=== PATIENT | female | born 2000 | race Caucasian/White ===

== ENCOUNTER 2021-03-16 18:15 | Emergency (ER) | payer SELFPAY ==
[~2021-03-16] VITALS: Ht 167.6 cm; Wt 65.8 kg
--- NOTE | 2021-03-16 18:50 | NUR ---
TO ER BED 16, C/O NIPPLE SWELLING & REDNESS FOR 3 DAYS, S/P NIPPLE PIERCED X 1 WEEK AGO, FEBRILE, A&OX4, BREATHING EVEN AND UNLABORED
--- NOTE | 2021-03-16 19:25 | NUR ---
saline lock established blood drawn and sent to lab
[2021-03-16] MEDS ORDERED: ACETAMINOPHEN ES 500 MG TABLET ONE (19:26)
[2021-03-16] MEDS ORDERED: IV NS 0.9% 1,000 ML BAG IV ONE (19:30)
[2021-03-16] MEDS ORDERED: ACETAMINOPHEN ES 500 MG TABLET PO ONE (19:30)
[2021-03-16 19:39] LABS: BASOPHILS % (AUTO) 0.1 % (0.0-2.0); EOSINOPHILS % (AUTO) 0.6 % (0.0-6.0); HEMATOCRIT 38 % (33-45); HEMOGLOBIN 13.1 g/dL (11.5-14.8); LYMPHOCYTES # (AUTO) 0.2 K/uL (0.8-4.8); LYMPHOCYTES % (AUTO) 1.8 % (20.0-44.0); MEAN CORPUSCULAR HGB CONC 34 g/dl (31.0-36.0); MEAN CORPUSCULAR VOLUME 92 fL (82-100); MONOCYTES # (AUTO) 0.8 K/uL (0.1-1.30); MONOCYTES % (AUTO) 5.8 % (2.0-12.0); NEUTROPHILS # (AUTO) 12.2 K/uL (1.8-8.9); NEUTROPHILS % (AUTO) 91.7 % (43.0-81.0); PLATELET COUNT (AUTO) 172 K/uL (150-450); RED BLOOD CELL COUNT(AUTO) 4.19 MIL/uL (4.0-5.2); WHITE BLOOD COUNT (AUTO) 13.3 K/uL (4.3-11.0)
[2021-03-16 20:10] LABS: CALCIUM, SERUM 8.9 mg/dL (8.5-10.1); CREATININE 0.9 mg/dL (0.6-1.3)
[2021-03-16 20:13] LABS: POTASSIUM 2.8 mmol/L (3.5-5.1)
[2021-03-16] MEDS ORDERED: POTASSIUM CHLORIDE 20 MEQ TAB.PRT.SR PO ONE ×2 (20:30→20:32)
[2021-03-16 20:47] LABS: BILIRUBIN,URINE SMALL (NEGATIVE); COLOR,URINE YELLOW (YELLOW); LEUKOCYTE ESTERASE ,URINE MODERATE (NEGATIVE); NITRITE, URINE NEGATIVE (NEGATIVE); PROTEIN,URINE 30 mg/dl (NEGATIVE); UGLUCOSE NEGATIVE (NEGATIVE); UROBILINOGEN,URINE >=8.0 EU/dL (0.2)
[2021-03-16 20:55] LABS: WBC,URINE 21-50 /HPF (0-3)
[2021-03-16 20:56] LABS: BACTERIA,URINE 3+ /HPF (None Seen); MUCUS,URINE Few /LPF (None Seen)
[2021-03-16] MEDS ORDERED: IBUP-1955 PO (21:18)
[2021-03-16] MEDS ORDERED: CEPH500T PO (21:18)
[2021-03-16] MEDS ORDERED: SULF1TAB48 PO (21:18)
[2021-03-16] MEDS ORDERED: CEFTRIAXONE 1GM BAG (ER ONLY) 50 ML IV ONE (21:22)
[2021-03-16] MEDS ORDERED: SULFAMETH/TRIMETH 800/160 MG 1 UDTAB TABLET ONE (21:23)
[2021-03-16] MEDS ORDERED: SULFAMETH/TRIMETH 800/160 MG 1 UDTAB TABLET PO ONE (21:30)
[2021-03-16] MEDS ORDERED: CEFTRIAXONE 1GM BAG (ER ONLY) 1 GM/50 ML PIGGYBACK IV ONE (21:30)
--- NOTE | 2021-03-16 22:00 | NUR ---
Patient discharged to home in stable condition. Rx and Written and verbal after care instructions given. Patient verbalizes understanding of instruction.
[2021-03-16 22:21] VITALS: BP 103/61
== END 2021-03-16 22:00 | disposition home or self-care (01) ==
LOC: ER 18:29
DX: N61.0 Mastitis without abscess (principal); N39.0 Urinary tract infection, site not specified; Z79.899 Other long term (current) drug therapy
CPT/HCPCS: 36415; 76642; 80048; 81001; 83605; 83735; 84703; 85025; 87040 ×2; 87077; 87086; 96361; 96365; 99284; J0696; J7030